=== PATIENT | female | born 1960 | race Caucasian/White ===

== ENCOUNTER 2019-10-09 16:53 | Emergency (ER) | payer MEDICARE, SELFPAY ==
[2019-10-09 17:00] VITALS: BP 153/84; PULSE 58; RESP 18; TEMP 36.7; O2SAT 99
--- NOTE | 2019-10-09 17:24 | DI.RAD_ITS ---
EXAM: XR FOREARM LT INDICATION: dog bite. COMPARISON: No exams were available for comparison TECHNIQUE: 2D digital imaging was performed. FINDINGS: There is a large soft tissue wound seen at the dorsal aspect of the distal forearm. No fracture or f oreign body is identified. IMPRESSION: Large soft tissue wound.
--- NOTE | 2019-10-09 17:25 | ED.GENADUL_ITS ---
Discharge Plan Disposition Patient Disposition: HOME Discharge Details Chief Complaint: AnimalBite Clinical Impression: Dog bite of left arm Primary Care Provider: Bruce Rai ED Provider: Tima Cardoso Home Meds and New Rx's Prescriptions: New amoxicillin-pot clavulanate [Augmentin] 875-125 mg tablet 1 tab PO BID Qty: 13 RF: 0 No Action metoprolol succinate 100 mg Tablet Extended Release 24 Hr 100 mg PO DAILY RF: 0 ketorolac 10 mg Tablet 10 mg PO RF: 0 amitriptyline 10 mg Tablet 10 mg PO RF: 0 propranolol 20 mg Tablet RF: 0 zonisamide 50 mg Capsule 50 mg PO RF: 0 Discharge Instructions Instructions: Animal Bite (ED) Additional Instructions: Your medications could not be reconciled today. Please take your medications as prescribed by your primary care physician. Please take antibiotic as prescribed. Change dressing daily and monitor for signs of infection including increased pain, discharge, redness, or swelling. Please follow-up with your primary care physician. Referrals: Bruce Rai [Primary Care Provider] - Discharge Data Discharge Date/Time-TO BE ENTERED AT DEPARTURE: 10/09/19 18:13 Medical Decision Making 59-year-old female here with dog bite to her left forearm. Unclear tetanus status. Will give tetanus immunization. Dog's rabies shots are up-to-date. X-ray of the left forearm reviewed and interpreted by me: No foreign body, no bony injury. Wound was irrigated with copious sterile saline. Steri-Strip was applied to laceration. Sterile dressing was applied. Augmentin given as prophylaxis. Usual customary discharge instructions were provided. HPI General Mode of arrival: ambulatory . Date/Time Provider Initiated Documentation: 10/09/19 17:00 . Limitations to Documentation: no limitations . Information obtained by: patient . HPI Narrative: 59-year-old female presents with chief complaint of dog bite to her left forearm. Dog bite occurred just prior to arrival. Patient was at friend's son's house and pet dog bit her in the left forearm. Patient sustained multiple wounds. One wound has been bleeding. No associated numbness or tingling. Symptoms are moderate. No modifiers. She is unsure of last tetanus status. Dog's shots are up-to-date. R elated Data Home Medications Medication Instructions Recorded Confirmed amitriptyline 10 mg PO 10/09/19 amoxicillin-pot clavulanate 1 tab PO BID #13 tab 10/09/19 [Augmentin] ketorolac 10 mg PO 10/09/19 metoprolol succinate 100 mg PO DAILY 10/09/19 10/09/19 propranolol 10/09/19 zonisamide 50 mg PO 10/09/19 Previous Rx's Medication Instructions Recorded amoxicillin-pot clavulanate 1 tab PO BID #13 tab 10/09/19 [Augmentin] Allergies Allergy/AdvReac Type Severity Reaction Status Date / Time No Known Allergies Allergy Unverified 10/09/19 17:04 General Stated Complaint: AnimalBite NOLBERTO: 4 Review of Systems Integumentary/Breasts Skin/Breast: Reports as per HPI Neurologic Neurologic: Reports as per HPI PFS Social History Smoking/Tobacco Use Status: Never Substance use type: does not use Do you feel safe at home: Yes Do you feel safe in your relationship?: Yes Exam Const General: cooperative and no acute distress HENMT Mouth: moist mucous membranes Cardio Jugular venous pressure: no JVD Rate: regular rate and not tachycardic Rhythm: regular rhythm Skin General skin exam: no rashes or lesions noted Neuro General: alert, awake and tone normal Extrem General: no edema Left upper extremity: elbow/forearm Details: normal ROM, laceration (1cm left posterior medial forearm, superficial abrasions) and distal pulses intact; no swelling Course Vital Signs Vital signs: Vital Signs Temperature 36.7 C 10/09/19 17:00 Pulse 58 L 10/09/19 17:00 Respiratory Rate 18 10/09/19 17:00 Blood Pressure 153/84 H 10/09/19 17:00 Pulse Oximetry 99 10/09/19 17:00 Temperature 36.7 C 10/09/19 17:00 Temperature Source Skin 10/09/19 17:00 Pulse 58 L 10/09/19 17:00 Respiratory Rate 18 10/09/19 17:00 Respiratory Effort 10/09/19 17:08 Blood Pressure 153/84 H 10/09/19 17:00 Blood Pressure Position Sitting 10/09/19 17:00 Pulse Oximetry 99 10/09/19 17:00 Oxygen Delivery Method Room Air 10/09/19 17:00 Oxygen Flow Rate 0 10/09/19 17:00 Pain Level 6 10/09/19 17:00
--- NOTE | 2019-10-09 17:56 | DI.VRAD_ITS ---
PROCEDURE INFORMATION: Exam: XR Left Forearm Exam date and time: 10/09/2019 17:45 Age: 59 years old Clinical history: Other: Dog bite TECHNIQUE: Imaging protocol: XR Left forearm. Views: 2 views. COMPARISON: No relevant prior studies available. FINDINGS: Bones/joints: The bones are demineralized. Degenerative changes partially seen in the wrist. No acute fracture or subluxation. Soft tissues: Distal forearm and wrist soft tissue swelling. Soft tissue defect, distal aspect of the forearm. Associated emphysema. No radiopaque foreign body. IMPRESSION: No acute bony pathology. Dictated and Authenticated by: Ramila Benton MD. Ordering:MIGUELANGEL Alfred MD
[2019-10-09] MEDS: Amoxicillin 875/Clav. 125 TAB PO (18:08)
[2019-10-09 18:09] VITALS: BP 153/84; PULSE 58; RESP 18; TEMP 36.7; O2SAT 99
--- NOTE | 2019-10-09 18:35 | NUR.NOTE ---
Animal bite form faxed to [facility] Officer Schuyler Amaral at work, [phone].Nursing Note:
== END 2019-10-09 18:13 | disposition home or self-care (01) ==
LOC: ER 18:34
PROVIDERS: Emergency Provider Student in an Organized Health Care Education/Training Program; PCP Family Medicine
DX: S51.852A Open bite of left forearm, initial encounter (principal); W54.0XXA Bitten by dog, initial encounter
CPT/HCPCS: 90471; 99283; 73090

== ENCOUNTER → 2019-12-16 12:25 | Outpatient (BNVA) | payer MEDICARE, SELFPAY | PROVIDERS: PCP Family Medicine; Referring Provider Family Medicine; Visit Provider Nurse Practitioner Adult Health | DX: G43.019 Migraine without aura, intractable, without status migrainosus (principal); G44.40 Drug-induced headache, not elsewhere classified, not intractable; I10 Essential (primary) hypertension | CPT/HCPCS: 99204; 99215 ==

== ENCOUNTER → 2020-01-06 15:05 | Outpatient (BNVA) | payer MEDICARE, SELFPAY | PROVIDERS: PCP Family Medicine; Referring Provider Family Medicine; Visit Provider Nurse Practitioner Adult Health | DX: G44.40 Drug-induced headache, not elsewhere classified, not intractable (principal); G43.019 Migraine without aura, intractable, without status migrainosus | CPT/HCPCS: 64405; 99213 ==

== ENCOUNTER 2020-12-30 08:13 | Day surgery (SDC) | payer MEDICARE, MEDICAID, SELFPAY ==
[2020-12-30 08:34] VITALS: BP 148/80; PULSE 56; RESP 16; TEMP 36.1; O2SAT 98
[2020-12-30] MEDS: Tropicam./Phenyleph. (1/2.5%) 5 ML BTL OS ×3 (08:48→09:02)
[2020-12-30] MEDS: Tetracaine 0.5% 4 ML BTL OS (10:29)
[2020-12-30] MEDS: Balanced Salt Soln.-PLUS 500 ML BAG (10:44)
[2020-12-30] MEDS: Duovisc Viscoelastic System EACH 1 EACH (10:45)
[2020-12-30] MEDS: Lidocaine 1% Pres-Free 5 ML VIAL (10:46)
[2020-12-30] MEDS: Lidocaine 2% Jelly 6 ML SYR (10:47)
[2020-12-30] MEDS: Povidone-Iodine Ophth 30 ML BTL (10:48)
--- NOTE | 2020-12-30 11:01 | W.PM.DSUDISC ---
Discharge Plan Disposition Patient Disposition: HOME Condition: Good Discharge Details Attending Provider: Clay Maxwell Primary Care Provider: Bruce Rai Home Meds and New Rx's Prescriptions: No Action gabapentin 100 mg capsule 100 mg PO TID RF: 0 meclizine 25 mg tablet 25 mg PO TID PRNRF: 0 metoclopramide HCl 10 mg tablet 10 mg PO TID PRNRF: 0 multivitamin Tablet 1 tab PO DAILY RF: 0 naproxen [Naprosyn] 500 mg tablet 500 mg PO BID RF: 0 pantoprazole 40 mg tablet,delayed release (DR/EC) 40 mg PO BID RF: 0 promethazine 25 mg suppository 25 mg MI Q6H PRNRF: 0 sumatriptan succinate 100 mg tablet 100 mg PO ONCE RF: 0 trazodone 50 mg tablet 50 mg PO QHS RF: 0 zonisamide 50 mg capsule 100 mg PO HS RF: 0 metoprolol succinate 100 mg Tablet Extended Release 24 Hr 100 mg PO DAILY RF: 0 ketorolac 10 mg tablet 10 mg PO DAILY RF: 0 fluoxetine 40 mg capsule 40 mg PO DAILY RF: 0 acetaminophen [Tylenol Extra Strength] 500 mg Capsule 500 mg PO Q6H PRNRF: 0 Discharge Instructions Stand Alone Forms: Post-op Topical Cataract Discharge Orders Discharge Orders: Discharge Order (Routine); Ordered 12/30/20 Ordered By: Clay Maxwell DS: Diagnosis Discharge Diagnosis (1) Combined form of age-related cataract, left eye: Status: Resolved
--- NOTE | 2020-12-30 11:02 | W.PM.OP ---
Date of service: 12/30/20 Time of Service: 11:02 Operative Note Operative Note DATE OF PROCEDURE: 12/30/20 PRE-OP DIAGNOSIS: Nuclear/cortical cataract, left eye Myopia, with desire to remain myopic postoperatively. POST-OP DIAGNOSIS: same PROCEDURE: Cataract extraction using phacoemulsification with intraocular lens implant, left eye SURGEON: Clay Maxwell ANESTHESIA: MAC and local (sub-tenon's anesthetic infiltration) PATHOLOGY: none sent COMPLICATIONS: None Patient was transported to: same day Patient's condition: stable Implants: Reji [employer]ji Vision / [employer] Tecnis ZCB00 Indications: Progressive decreased vision due to cataract, left eye Procedure Description: CATARACT SURGERY OPERATIVE REPORT PREOPERATIVE DIAGNOSIS: Nuclear/cortical cataract, left eye Myopia POSTOPERATIVE DIAGNOSIS: Same OPERATION: Cataract extraction using phacoemulsification with posterior chamber intraocular lens implant, left eye. IOL: IOL Special Needs Teacher/Model: J[employer]J Vision / DARWIN Tecnis ZCB00 IOL Power: + 16.5 diopters IOL Serial Number: [id number] Optic Diameter: 6.0mm Haptic/Overall Diameter: 13.0mm PHACO INFO: True [employer] Vision System with OZil and Active Fluidics Cumulative Dispersed Energy (CDE): 6.90 seconds SURGEON: Clay Maxwell MD, THEO ANESTHESIA: Monitored Anesthesia Care (MAC), with local sub-tenon's anesthetic infiltration COMPLICATIONS: None SPECIMENS: None INDICATIONS FOR PROCEDURE: Patient is a 60-year-old lady with history of myopia who has developed significant bilateral nuclear and cortical cataract in both eyes. She is significantly symptomatic that she desires cataract surgery and attempt to improve and maximize her vision. She desires to remain myopic postoperatively, approximately -2.50 diopters refractive target. PROCEDURE: The correct surgical eye was identified and marked as the left eye and the pupil was dilated in the preoperative area using mydriatics and cycloplegics. The dilated pupil size was 7.5 mm. She elected to proceed without sedation. The patient was brought to the operating room where cardiopulmonary monitoring was instituted and surgical time-out was performed, confirming the correct operative eye and IOL power. Topical anesthesia was administered and ophthalmic povidone-iodine 5% was instilled into the conjunctival fornices. Lidocaine gel was applied to the cornea and the jermain-ocular area was prepped with Betadine 10% solution and draped in the usual sterile fashion for intraocular surgery, including an aperture drape. A Tegaderm transparent film dressing was cut in half and used to cover the lashes and lid margins. Care was taken to sequester the lashes and lid margins under the Tegaderm dressing. A lid speculum was placed between the lids of the operative eye and the Prosper-Lakeshia operating microscope was maneuvered into position. Akira scissors were then used to make a conjunctival buttonhole approximately 6mm posterior to the limbus in the inferonasal quadrant. Blunt dissection was carried out to expose bare sclera, and a blunt-tipped sub-tenon?s anesthesia cannula was introduced and passed posteriorly along the globe where non-preserved plain lidocaine was injected into posterior sub-Tenon?s space. A sideport knife was used to make a paracentesis port superior/superiortemporally. Intraocular phenylephrine/lidocaine was injected into the anterior chamber. The anterior chamber was then filled with viscoelastic. A 2.4mm keratome knife was used to create a half-thickness groove at the limbus and then to construct a three-plane near-clear corneal tunnel extending 2.0mm into clear cornea in the temporal position. . A flap was raised on the anterior capsule and capsulorhexis forceps were used to complete a continuous curvilinear capsulorhexis of 5.0 mm. Balanced salt solution was then used to perform cortical cleaving hydrodissection and nuclear hydrodelineation until the lens could be freely rotated within the capsular bag. The lens nucleus was then disassembled and removed within the capsular bag and iris plane using phacoemulsification. Residual cortical material was removed using the 45-degree angled silicone I/A tip with 0.3mm port. The posterior capsule was carefully polished to remove as much residual lens epithelial cells as safely possible. The capsular bag was then inflated and the anterior chamber deepened with viscoelastic. The lens implant described above was inserted into the capsular bag using the DARWNI [place] Injector. A Kuglen hook was used to dial the IOL into position. Residual viscoelastic was then removed first from posterior to the IOL, then from the anterior chamber using the I/A handpiece. The lens implant was noted to center nicely within the capsular bag. The incisions were stromally hydrated, and the anterior chamber was reformed using BSS. Then 0.5cc of moxifloxacin 1.0mg/ml were injected into the capsular bag and anterior chamber. The incisions were checked with a Weck spear and found to be secure. Several drops of ophthalmic povidone-iodine 5% were then applied to the eye followed by two drops of Imprimis combination prednisolone/moxifloxacin/nepafenac solution. The drapes were removed and a clear plastic protective eye shield was placed over the eye. The patient was then returned to Same Day Surgery in stable condition.
== END 2020-12-30 11:28 | disposition home or self-care (01) ==
PROVIDERS: PCP Family Medicine; Visit Provider Ophthalmology
PROC: (CPT 66984; principal; 2020-12-30 10:30)
DX: H25.012 Cortical age-related cataract, left eye (principal); H25.12 Age-related nuclear cataract, left eye; H52.12 Myopia, left eye; K21.9 Gastro-esophageal reflux disease without esophagitis
CPT/HCPCS: 66984; V2632

== ENCOUNTER 2021-01-13 08:17 | Day surgery (SDC) | payer MEDICARE, MEDICAID, SELFPAY ==
[2021-01-13 08:33] VITALS: BP 148/72; PULSE 52; RESP 16; TEMP 36.4; O2SAT 99
[2021-01-13] MEDS: Tropicam./Phenyleph. (1/2.5%) 5 ML BTL OD ×3 (08:45→08:55)
[2021-01-13] MEDS: Duovisc Viscoelastic System EACH 1 EACH (09:45)
[2021-01-13] MEDS: Tetracaine 0.5% 4 ML BTL OD (09:45)
[2021-01-13] MEDS: Balanced Salt Soln.-PLUS 500 ML BAG (09:45)
[2021-01-13] MEDS: Lidocaine 1% Pres-Free 5 ML VIAL (09:46)
[2021-01-13] MEDS: Lidocaine 2% Jelly 6 ML SYR (09:46)
[2021-01-13] MEDS: Povidone-Iodine Ophth 30 ML BTL (09:48)
--- NOTE | 2021-01-13 10:11 | W.PM.DSUDISC ---
Discharge Plan Disposition Patient Disposition: HOME Condition: Good Discharge Details Attending Provider: Clay Maxwell Primary Care Provider: Bruce Rai Home Meds and New Rx's Prescriptions: No Action gabapentin 100 mg capsule 100 mg PO TID RF: 0 meclizine 25 mg tablet 25 mg PO TID PRNRF: 0 metoclopramide HCl 10 mg tablet 10 mg PO TID PRNRF: 0 naproxen [Naprosyn] 500 mg tablet 500 mg PO BID RF: 0 pantoprazole 40 mg tablet,delayed release (DR/EC) 40 mg PO BID RF: 0 sumatriptan succinate 100 mg tablet 100 mg PO ONCE RF: 0 trazodone 50 mg tablet 50 mg PO QHS RF: 0 zonisamide 50 mg capsule 100 mg PO HS RF: 0 ketorolac 10 mg tablet 10 mg PO DAILY RF: 0 fluoxetine 40 mg capsule 40 mg PO DAILY RF: 0 acetaminophen [Tylenol Extra Strength] 500 mg Capsule 500 mg PO Q6H PRNRF: 0 Discharge Instructions Stand Alone Forms: Post-op Topical Cataract, Ney Marley (DSU) Discharge Orders Discharge Orders: Discharge Order (Routine); Ordered 01/13/21 Ordered By: Clay Maxwell DS: Diagnosis Discharge Diagnosis (1) Cortical cataract of right eye: Status: Resolved (2) Nuclear sclerotic cataract of right eye: Status: Resolved
--- NOTE | 2021-01-13 10:12 | W.PM.OP ---
Date of service: 01/13/21 Time of Service: 10:12 Operative Note Operative Note DATE OF PROCEDURE: 01/13/21 PRE-OP DIAGNOSIS: Nuclear/cortical cataract, right eye POST-OP DIAGNOSIS: same PROCEDURE: Cataract extraction using phacoemulsification with intraocular lens implant, right eye SURGEON: Clay Maxwell Refer to Anesthesia Record ESTIMATED BLOOD LOSS: 0 PATHOLOGY: none sent COMPLICATIONS: None Patient was transported to: same day Patient's condition: stable Implants: Reji and Reji Vision / [employer] Tecnis ZCB00 intraocular lens Indications: Progressive decreased vision due to cataract, right eye Procedure Description: CATARACT SURGERY OPERATIVE REPORT PREOPERATIVE DIAGNOSIS: Nuclear/cortical cataract, right eye POSTOPERATIVE DIAGNOSIS: Same OPERATION: Cataract extraction using phacoemulsification with posterior chamber intraocular lens implant, right eye. IOL: IOL Inspector Coated Fabrics/Model: J&J Vision / DARWIN Tecnis ZCB00 IOL Power: + 19.5 diopters IOL Serial Number: [id number] Optic Diameter: 6.0mm Haptic/Overall Diameter: 13.0mm PHACO INFO: True[employer]ion Vision System with OZil and Active Fluidics Cumulative Dispersed Energy (CDE): 4.62 seconds SURGEON: Clay Maxwell MD, THEO ANESTHESIA: Monitored Anesthesia Care (MAC), with local sub-tenon's anesthetic infiltration COMPLICATIONS: None SPECIMENS: None INDICATIONS FOR PROCEDURE: The patient is a 60-year-old lady with history of diminished visual acuity in both eyes secondary to the development of bilateral nuclear and cortical cataract. She was significantly symptomatic that she desired cataract surgery and attempt to improve and maximize her vision. In addition, she desired to be able to read postoperatively without glasses. Postoperative refractive target is -2.50 diopters. PROCEDURE: The correct surgical eye was identified and marked as the right eye and the pupil was dilated in the preoperative area using mydriatics and cycloplegics. The dilated pupil size was 8.0 mm. The patient was brought to the operating room where cardiopulmonary monitoring was instituted and surgical time-out was performed, confirming the correct operative eye and IOL power. Topical anesthesia was administered and ophthalmic povidone-iodine 5% was instilled into the conjunctival fornices. Lidocaine gel was applied to the cornea and the jermain-ocular area was prepped with Betadine 10% solution and draped in the usual sterile fashion for intraocular surgery, including an aperture drape. A Tegaderm transparent film dressing was cut in half and used to cover the lashes and lid margins. Care was taken to sequester the lashes and lid margins under the Tegaderm dressing. A lid speculum was placed between the lids of the operative eye and the Prosper-Lakeshia operating microscope was maneuvered into position. Akira scissors were then used to make a conjunctival buttonhole approximately 6mm posterior to the limbus in the inferonasal quadrant. Blunt dissection was carried out to expose bare sclera, and a blunt-tipped sub-tenon?s anesthesia cannula was introduced and passed posteriorly along the globe where non-preserved plain lidocaine was injected into posterior sub-Tenon?s space. A sideport knife was used to make a paracentesis port inferiortemporally. Intraocular phenylephrine/lidocaine was injected into the anterior chamber. The anterior chamber was then filled with viscoelastic. A 2.4mm keratome knife was used to create a half-thickness groove at the limbus and then to construct a three-plane near-clear corneal tunnel extending 2.0mm into clear cornea in the superiortemporal position. . A flap was raised on the anterior capsule and capsulorhexis forceps were used to complete a continuous curvilinear capsulorhexis of 5.5 mm. Balanced salt solution was then used to perform cortical cleaving hydrodissection and nuclear hydrodelineation until the lens could be freely rotated within the capsular bag. The lens nucleus was then disassembled and removed within the capsular bag and iris plane using phacoemulsification. Residual cortical material was removed using the I/A handpiece. The posterior capsule was carefully polished to remove as much residual lens epithelial cells as safely possible. The capsular bag was then inflated and the anterior chamber deepened with viscoelastic. The lens implant described above was inserted into the capsular bag using the DARWIN [place] Injector. A Kuglen hook was used to dial the IOL into position. Residual viscoelastic was then removed first from posterior to the IOL, then from the anterior chamber using the I/A handpiece. The lens implant was noted to center nicely within the capsular bag. The incisions were stromally hydrated, and the anterior chamber was reformed using BSS. Then 0.5cc of moxifloxacin 1.0mg/ml were injected into the capsular bag and anterior chamber. The incisions were checked with a Weck spear and found to be secure. Several drops of ophthalmic povidone-iodine 5% were then applied to the eye followed by two drops of Imprimis combination prednisolone/moxifloxacin/nepafenac solution. The drapes were removed and a clear plastic protective eye shield was placed over the eye. The patient was then returned to Same Day Surgery in stable condition.
== END 2021-01-13 10:30 | disposition home or self-care (01) ==
PROVIDERS: PCP Family Medicine; Visit Provider Ophthalmology
PROC: (CPT 66984; principal; 2021-01-13 10:30)
DX: H25.011 Cortical age-related cataract, right eye (principal); H25.11 Age-related nuclear cataract, right eye
CPT/HCPCS: 66984; V2632

== ENCOUNTER 2024-11-29 22:00 | Emergency (ER) | payer MEDICARE, SELFPAY ==
[2024-11-29] VITALS (15 sets, daily range): BP systolic 164–214; BP diastolic 66–130; PULSE 65–98; RESP 16; TEMP 36.4; O2SAT 98–100
--- NOTE | 2024-11-29 22:45 | RT.EKG_ITS ---
APPROVED REPORT Exam: Resting ECG Reason for Exam: fatigue Patient Location: E HR:68 bpm ECG Measurements Heart Rate 68 AXIS NV 145 P 64 QRSd 126 QRS 26 QT 459 T 247 QTc 489 Conclusion Sinus rhythm...normal P axis, V-rate 60- 99 Left atrial enlargement...P, P'>60mS, <-0.15mV V1 Left bundle branch block...QRSd>120, broad/notched R Physician: negative for sgarbossa
--- NOTE | 2024-11-29 22:53 | ED.GENADUL_ITS ---
Discharge Plan Disposition Patient Disposition: Home Condition: Good Discharge Details Clinical Impression: Acute dehydration, Nausea & vomiting, Fatigue Primary Care Provider: Bruce Rai ED Provider: Aldair Andres Home Meds and New Rx's Prescriptions: No Action pantoprazole 40 mg tablet,delayed release (DR/EC) 40 mg PO BID sumatriptan succinate 100 mg tablet 100 mg PO ONCE amlodipine 5 mg tablet 5 mg PO DAILY Patient Comments: TAKE TWO TABLETS BY MOUTH EVERY DAY prochlorperazine maleate 10 mg tablet 10 mg PO PRN Patient Comments: TAKE ONE TABLET BY MOUTH THREE TIMES A DAY metoprolol succinate 25 mg tablet extended release 24 hr 25 mg PO DAILY Patient Comments: TAKE 1/2 TABLET BY MOUTH DAILY (12.5 MG) ondansetron 4 mg tablet,disintegrating 4 mg PO PRN Patient Comments: DISSOLVE ONE TABLET ON THE TONGUE THREE TIMES A DAY Discharge Instructions Instructions: Nausea and vomiting in adults Additional Instructions: At this time your workup is returned reassuring. We do not see any significant abnormalities in your labs at this time. You were notably dehydrated. Please continue taking small sips of water as you are able. There is concern that you may have mild adrenal insufficiency after your procedure. Please follow-up closely with your graduate recruiter. We have placed a referral for an EGD for your surgeons in [place]. If you do not hear back from the surgery services in [place] over the next week, please reach out to your primary care provider. If you notice any worsening of your symptoms, or any new symptoms such as vomiting, diarrhea, fever, chills, shortness of breath, chest pain, numbness, weakness, or fainting , please return immediately to the emergency department for reevaluation. Please follow up with your primary care provider as soon as possible for reassessment and reevaluation. As always, it was a pleasure participating in your medical care today. Referrals: Bruce Rai [Primary Care Provider] - Discharge Data Discharge Date/Time-TO BE ENTERED AT DEPARTURE: 11/30/24 02:15 HPI General Date/Time Provider Initiated Documentation: 11/29/24 22:18 . HPI Narrative: This is a 64-year-old female with a past medical history of recent voluntary nephrectomy for organ donation about 2-1/2 months ago, surgical h ysterectomy, bladder sling, hypertension, asthma, irritable bowel syndrome, who presents today for evaluation of nausea vomiting and abdominal pain. Patient states that for the last 2 and half months post nephrectomy she has been having very mild intermittent nausea and occasional vomiting. It was fairly infrequent though. However patient states that over the last 6 days she has had extreme fatigue, multiple episodes of nausea and vomiting, has been unable to keep anything down. She is also admitted to a central infraumbilical abdominal pain and achiness and crampiness that is new. She denies any tearing or ripping sensation. She has not had any bowel movement for 5 days secondary to the diminished intake. She has felt extremely fatigued with all activities. She denies any chest pain or shortness of breath though. She denies any fever or chills. She did have a nonemergent CT scan performed about 1 week ago which showed a shrinking adrenal hematoma, and then 3 days ago she went to the [facility] emergency department where she had screening labs done, was given antiemetics and fluids, and was discharged home after a reassuring workup. She states her symptoms have continued and worsened since then. She denies any fever or chills. She denies any hematemesis. No hematochezia. No urinary discomfort. No other complaints at this time. She has taken oral Zofran without improvement of her symptoms. Related Data Home Medications ?Medication ?Instructions ?Recorded ?Confirmed pantoprazole 40 mg tablet,delayed 40 mg PO BID 12/14/19 11/29/24 release sumatriptan succinate 100 mg tablet 100 mg PO ONCE 12/14/19 11/29/24 amlodipine 5 mg tablet 5 mg PO DAILY 11/29/24 11/29/24 metoprolol succinate 25 mg 25 mg PO DAILY 11/29/24 11/29/24 tablet,extended release 24 hr ondansetron 4 mg disintegrating 4 mg PO PRN 11/29/24 11/29/24 tablet prochlorperazine maleate 10 mg 10 mg PO PRN 11/29/24 11/29/24 tablet Allergies Allergy/AdvReac Type Severity Reaction Status Date / Time grass pollen Allergy Intermediate Itching Verified 11/29/24 22:17 General Stated Complaint: GenMedical NOLBERTO: 3 Exam Narrative Exam Narrative: 1.Const: Well-nourished, Well-developed, appearing stated age 2.Eyes: PERRL, no conjunctival injection, and symmetrical lids. 3.ENT: Atraumatic external nose and ears. Dry MM. Neck: Symmetric, trachea midline, No thyromegaly. 4.CVS: +S1/S2, Peripheral pulses 2+ and equal in all extremities. Brisk capillary refill in all extremities. 5.RESP: Unlabored respiratory effort. Clear to auscultation bilaterally. No wheezes rales or rhonchi 6.GI: Soft, nondistended. No guarding or rebound, however there is mild tenderness to moderate tenderness in the infraumbilical region. No pulsatile abdominal mass. No epigastric left upper or right upper quadrant tenderness. 7.MSK: Normocephalic/Atraumatic, Extremities w/o deformity or ttp No cyanosis or clubbing, Normal movement of all extremities 8.Skin: Warm, Dry. No rashes or lesions. 9.Neuro: 1st pressman II-XII grossly intact. Sensation grossly intact, no focal neurologic deficits. 10.Psych: (AAO) x3. Appropriate mood and affect Course Vital Signs Vital signs: Vital Signs Temperature 36.4 C 11/29/24 22:11 Pulse 98 H 11/29/24 22:11 Respiratory Rate 16 11/29/24 22:11 Blood Pressure 214/102 H 11/29/24 22:11 Pulse Oximetry 99 11/29/24 22:11 Temperature 36.4 C 11/29/24 22:11 Temperature Source Oral 11/29/24 22:11 Pulse 78 11/29/24 22:24 Respiratory Rate 16 11/29/24 22:24 Respiratory Effort Normal, Non-Labored 11/29/24 22:24 Respiratory Depth Normal 11/29/24 22:24 Respiratory Pattern Normal 11/29/24 22:24 Blood Pressure 202/90 H 11/29/24 22:24 Blood Pressure Position Supine 11/29/24 22:24 Pulse Oximetry 100 11/29/24 22:24 Oxygen Delivery Method Room Air 11/29/24 22:24 Oxygen Flow Rate 0 11/29/24 22:11 Medical Decision Making This is a 64-year-old female with a past medical history of recent voluntary nephrectomy for organ donation about 2-1/2 months ago, surgical hysterectomy, bladder sling, hypertension, asthma, irritable bowel syndrome, who presents today for evaluation of nausea vomiting and abdominal pain. Patient states that for the last 2 and half months post nephrectomy she has been having very mild intermittent nausea and occasional vomiting. It was fairly infrequent though. However patient states that over the last 6 days she has had extreme fatigue, multiple episodes of nausea and vomiting, has been unable to keep anything down. She is also admitted to a central infraumbilical abdominal pain and achiness and crampiness that is new. She denies any tearing or ripping sensation. She has not had any bowel movement for 5 days secondary to the diminished intake. She has felt extremely fatigued with all activities. She denies any chest pain or shortness of breath though. She denies any fever or chills. She did have a nonemergent CT scan performed about 1 week ago which showed a shrinking adrenal hematoma, and then 3 days ago she went to the [facility] emergency department where she had screening labs done, was given antiemetics and fluids, and was discharged home after a reassuring workup. She states her symptoms have continued and worsened since then. She denies any fever or chills. She denies any hematemesis. No hematochezia. No urinary discomfort. No other complaints at this time. She has taken oral Zofran without improvement of her symptoms. Exam demonstrates dry mucous membranes, infraumbilical tenderness. No signs of an acute surgical abdomen though. Vital signs demonstrate hypertension. Symptoms appear clinically inconsistent with [place]house Lisa syndrome. Concern for postoperative bleeding causing abdominal pain, postoperative infection, ileus, obstruction, pancreatitis, and less likely cardiac etiology remain on the differential. Urinary component unlikely without evidence of urinary pain or frequency, however we will evaluate for this. We will with a liter of lactated Ringer's, will give Zofran and Reglan, will get noncontrasted CT imaging, monitor closely and reassess. 2:30 AM Laboratory workup has returned very reassuring, no white count bandemia or left shift. Electrolytes stable, potassium minimally low at 3.3. Anion gap slightly elevated at 17 likely secondary to dehydration. Troponin normal, lipase normal, repeat troponin normal. Transaminases normal. Thyroid function normal. Urinalysis shows some ketones, moderate blood, but no leuk esterase or nitrates. No casts. CT imaging shows left nephrectomy, and some stranding adjacent to the left which appears relatively stable compared to prior CAT scan last week with some improvement of the hematoma. Patient states that she does not feel any less nauseous than before after antiemetics. I did offer more Zofran and Reglan however she declined feeling that these did not help. I did give Tigan IM which she tolerated well. I am concerned that some of her symptomatology may be potentially due to mild adrenal insufficiency postoperatively with all the stress associated. We will give a test dose of Solu-Cortef to evaluate for any clinical improvement of her symptomatology. At this time though there is no evidence of other concerning life-threatening etiology. Patient has been rehydrated and vital signs are stable. We will place referral with [place] surgeons for EGD and colonoscopy to evaluate for potential cause of persistent nausea. However at this time there is no evidence of pancreatitis or other concerning abnormality. She is already on Protonix. Recommend that she continue this. I had a long discussion with the patient regarding her symptomatology, what we were able to rule out, and what the next steps were for diagnostic evaluation. She does have outpatient follow-up with endocrinology already scheduled. Patient will be discharged home. Discussed red flags which to return. I have extensively reviewed the treatment plan and discharge instructions with the patient. I have addressed all patient concerns at this time. The patient was made aware of what symptoms to monitor for that would warrant a return to the emergency department. Discussed the plan with the patient, they demonstrate verbal understanding and agreement with our assessment and plan at this time. The documentation in this chart was dictated using Findline dictation software. Please excuse any dictation errors. FINDINGS: Limitations: No intravenous contrast was administered, limiting evaluation for some pathologies. Lungs: Calcified granulomas in the visualized lungs. Liver: No focal hepatic lesion identified, within the limitations of a noncontrast examination. Gallbladder and biliary ducts: Distended gallbladder. Artifact versus sludge or small calculi in the gallbladder. Pancreas: No CT evidence for acute pancreatitis. Spleen: No splenomegaly. Adrenal glands: Bilateral nodular adrenal thickening. Stranding adjacent to the left adrenal gland. Kidneys and ureters: Recent left nephrectomy. Stranding in the surgical bed without discrete drainable collection. Stomach and bowel: Focal thickening in the ascending colon commensurate with incomplete distension. No intestinal obstruction is evident. Appendix: No evidence of appendicitis. Intraperitoneal space: No free air. Vasculature: Arterial calcifications. Lymph nodes: No acute findings. Urinary bladder: No acute findings. Reproductive: Uterus absent. Bones/joints: Anterolisthesis of L4 on L5. Compression deformity at T12 and additional endplate deformities appear chronic. Soft tissues: No pertinent acute abnormality seen. IMPRESSION: 1. Stranding in the left renal fossa consistent with recent left nephrectomy. Stranding adjacent to the left adrenal gland may be related to recent surgery. Cannot exclude adrenal injury or hemorrhage. Follow-up as clinically warranted. 2. Additional findings as above. Thank you for allowing us to participate in the care of your patient. Dictated and Authenticated by: Gavi Hsu MD 11/30/2024 12:47 AM Eastern Time ([place] & [place]) Quality:SDOH Health Related Social Needs: No Data to Display PFSH All Active Problems (Updated 11/30/24 @ 01:49 by Aldair Andres DO) Fatigue (Acute) Nausea & vomiting (Acute) Acute dehydration (Acute) Nail dystrophy (Acute) Onychomycosis (Acute) H/O: HTN (hypertension) (Acute) Sensorineural hearing loss, bilateral (Acute) Sensorineural hearing loss of both ears (Acute) Medication overuse headache (Acute) Migraine headache without aura (Acute) Medical History Depressive disorder History of arthritis History of asthma History of IBS Surgical History H/O tubal ligation H/O: hysterectomy History of esophagogastroduodenoscopy (EGD) Hx of bladder repair surgery Hx of colonoscopy Family History Father Renal failure syndrome Mother Family history of cancer Social History Smoking/Tobacco Use Status: Never Smoking risk assessment performed?: Yes Alcohol Intake: never Substance use type: does not use Do you feel safe at home: Yes Do you feel safe in your relationship?: Yes
[2024-11-29] MEDS: Metoclopramide 10 MG/2 ML VIAL IVP (23:23)
[2024-11-29] MEDS: Sucralfate 1 GM TAB PO (23:23)
[2024-11-29] MEDS: Ondansetron 4 MG/2 ML VIAL IVP (23:23)
[2024-11-29] MEDS: Lactated Ringers 1,000 ML 1000 ML IV (23:24)
[2024-11-29 23:37] LABS: Abs Immature Grans 0.05 10^3/uL (0.0-0.06); Absolute Basophil Count 0.05 10^3/uL (0.0-0.2); Absolute Eosinophil Count 0.06 10^3/uL (0.0-0.7); Absolute Monocyte Count 0.58 10^3/uL (0.1-0.8); Absolute Neutrophil Count 5.13 10^3/uL (1.2-6.7); Basophils % 0.7 %; Eosinophils % 0.8 %; HCT 44.3 % (36.0-46.0); HGB 13.9 g/dL (11.2-15.7); Immature Grans % 0.7 %; Lymphocytes % 20.4 %; MCH 28.9 pg (27.0-33.0); MCHC 31.4 % (32.0-36.0); MCV 92 fL (80-95); MPV 9.1 fL (8.0-11.0); Monocytes % 7.9 %; Neutrophils % 69.5 %; Platelet Count 405 10^3/uL (130-400); RBC 4.81 10^6/uL (3.93-5.22); RDW 17.3 % (11.7-14.6); RDW-SD 58.6 fL; WBC 7.37 10^3/uL (4.4-10.8)
[2024-11-29 23:38] LABS: Bilirubin Small (Negative); Blood Moderate (Negative); Clarity Clear (Clear); Glucose Negative (Negative); Ketones 80 mg/dL (Negative); Leukocyte Esterase Negative (Negative); Nitrite Negative (Negative); Specific Gravity 1.025 (1.005-1.025); Urobilinogen 0.2 mg/dL (Up to 0.2); pH 5.5 (5-8)
[2024-11-29 23:44] LABS: Bacteria Few HPF (Negative); C & S Indicated? No; Casts Negative LPF (Negative); Crystals Negative HPF (Negative); Epithelial Cells Few HPF (Negative); Mucus Moderate (Negative)
[2024-11-30] VITALS: O2SAT 100
--- NOTE | 2024-11-30 | DI.CT_ITS ---
Exam(s) CT ABDOMEN PELVIS WO EXAM: CT ABDOMEN PELVIS WO CLINICAL HISTORY: Recent nephrectomy, mid abdominal pain with vomiti. TECHNIQUE: Imaging Protocol: Axial computed tomography images with coronal and sagittal reformatted images were created and reviewed. Oral: / no COMPARISON: CT CT HEAD/BRAIN WO CONTRAST from 12/31/2018 FINDINGS: Lung Bases: No acute findings. Liver: Normal density. No suspicious mass. Gallbladder and biliary tract: No radiodense calculus or biliary dilation. Pancreas: Normal density. No abnormal calcifications or inflammatory process. Spleen: Normal. Kidneys: The right kidney shows normal size, contour and axis. No radiodense stones. No obstructive uropathy. No suspicious masses seen. Status post left nephrectomy. Mild residual stranding in the renal bed. Adrenal glands: No masses seen. Mild stranding around left adrenal gland. Lymph nodes: Within normal limits. Vasculature: Abdominal aorta non-dilated. Soft tissues: Midline surgical scar appears well healed. Bladder: No wall thickening. No mass or calculi. Bowel: No obstruction or bowel wall thickening. Peritoneal cavity: No ascites. No focal collection. No mesenteric inflammatory response. Reproductive organs: Status post hysterectomy. Bones: Old T12 compression fracture. Scoliosis and degenerative changes. Bilateral L4 spondylolysis . Mild L4-5 spondylolisthesis. IMPRESSION: Status post left nephrectomy. Expected mild stranding in renal bed. No acute abnormality. RADIATION DOSE DELIVERED: 472.09mGy.cm Total DLP DATA REPOSITORY: All CT scans at this facility are submitted to the National Radiology Data Registry (NRDR) Dose Index Registry (DIR) with the [employer] ([employer]). RADIATION OPTIMIZATION: All CT scans at this facility use at least one of these dose optimization te chniques: automated exposure control; mA and/or kV adjustment per patient size (includes targeted exa ms where dose is matched to clinical indication); or iterative reconstruction.
[2024-11-30 00:01] VITALS: BP 189/77; PULSE 70
[2024-11-30 00:01] LABS: ALT 25 U/L (14-59); AST 19 U/L (15-37); Albumin 4.2 g/dL (3.4-5.0); Alkaline Phosphatase 75 U/L (46-116); Anion Gap 17.2 mmol/L (3-11); BUN 18 mg/dL (7-18); Bilirubin, Total 0.42 mg/dL (0.2-1.0); CO2 21.8 mmol/L (21.0-32.0); CREATININE 1.2 mg/dL (0.55-1.02); Chloride 101 mmol/L (98-107); Estimated GFR 50.23 (mL/min/1.73m2); Glucose 98 mg/dL (74-106); Lipase 72 U/L (<78); Potassium 3.3 mmol/L (3.5-5.1); Sodium 140 mmol/L (136-145); TSH (W/Ref FT4) 1.13 uIU/mL (0.36-3.74); Total Protein 8.1 g/dL (6.4-8.2)
[2024-11-30 00:05] LABS: Calcium 9.3 mg/dL (8.5-10.1)
[2024-11-30 00:06] LABS: Troponin I 16 ng/L (<or=51)
[2024-11-30 00:10] VITALS: O2SAT 100
--- NOTE | 2024-11-30 00:48 | DI.VRAD_ITS ---
PROCEDURE INFORMATION: Exam: CT Abdomen And Pelvis Without Contrast Exam date and time: 11/30/2024 12:10 AM Age: 64 years old Clinical indication: Generalized; Prior surgery; Surgery date: 1-6 months; Surgery type: Nephrectomy, hysterectomy, bladder sling; Patient HX: Recent nephrectomy, mid abdominal pain with vomiting TECHNIQUE: Imaging protocol: Computed tomography of the abdomen and pelvis without contrast. Radiation optimization: All CT scans at this facility use at least one of these dose optimization techniques: automated exposure control; mA and/or kV adjustment per patient size (includes targeted exams where dose is matched to clinical indication); or iterative reconstruction. COMPARISON: No relevant prior studies available. FINDINGS: Limitations: No intravenous contrast was administered, limiting evaluation for some pathologies. Lungs: Calcified granulomas in the visualized lungs. Liver: No focal hepatic lesion identified, within the limitations of a noncontrast examination. Gallbladder and biliary ducts: Distended gallbladder. Artifact versus sludge or small calculi in the gallbladder. Pancreas: No CT evidence for acute pancreatitis. Spleen: No splenomegaly. Adrenal glands: Bilateral nodular adrenal thickening. Stranding adjacent to the left adrenal gland. Kidneys and ureters: Recent left nephrectomy. Stranding in the surgical bed without discrete drainable collection. Stomach and bowel: Focal thickening in the ascending colon commensurate with incomplete distension. No intestinal obstruction is evident. Appendix: No evidence of appendicitis. Intraperitoneal space: No free air. Vasculature: Arterial calcifications. Lymph nodes: No acute findings. Urinary bladder: No acute findings. Reproductive: Uterus absent. Bones/joints: Anterolisthesis of L4 on L5. Compression deformity at T12 and additional endplate deformities appear chronic. Soft tissues: No pertinent acute abnormality seen. IMPRESSION: 1. Stranding in the left renal fossa consistent with recent left nephrectomy. Stranding adjacent to the left adrenal gland may be related to recent surgery. Cannot exclude adrenal injury or hemorrhage. Follow-up as clinically warranted. 2. Additional findings as above. Dictated and Authenticated by: Gavi Hsu MD. Ordering:RUSSEL Quinteros MD
[2024-11-30 01:20] LABS: Troponin I 18 ng/L (<or=51)
[2024-11-30] MEDS: Hydrocortisone SOD SUC. 100 MG VIAL IVP (01:34)
[2024-11-30 01:35] VITALS: BP 175/88; PULSE 97; RESP 16; O2SAT 97
[2024-11-30] MEDS: Trimethobenzamide 200 MG/2 ML VIAL IM (01:58)
[2024-11-30 02:03] VITALS: BP 172/80; PULSE 76; RESP 16; O2SAT 99
== END 2024-11-30 02:15 | disposition home or self-care (01) ==
PROVIDERS: Emergency Provider Student in an Organized Health Care Education/Training Program; PCP Family Medicine
DX: E86.0 Dehydration (principal); R11.2 Nausea with vomiting, unspecified; R53.83 Other fatigue; I10 Essential (primary) hypertension; Z90.5 Acquired absence of kidney
CPT/HCPCS: 80053; 83690; 93005; 96361; 96372; 96374; 96375; 99285; 74176; 81003; 81015; 84443; 84484; 85025; 93010; 99284; J1720; J2405; J2765; J3250